=== PATIENT | female | born 1985 | race Caucasian/White ===

== ENCOUNTER 2017-08-31 08:21 | Inpatient (IN) | payer OTHER ==
[~2017-08-31] VITALS: Ht 162.6 cm; Wt 99.8 kg
[2017-08-31] VITALS (13 sets, daily range): BP systolic 108–135; BP diastolic 60–76
[~2017-08-31 08:21] MED LIST: Dexamethasone 20mg/5ml IVP ONE; NORCO 10-325 T1 EACH ORAL; SOMA350 MG PO; ceFAZolin 1gm/50ml Premix 50 ML IV ONE
[2017-08-31] MEDS ORDERED: LR 1000ml 1,000 ML IVLG SCH (09:58)
[2017-08-31] MEDS ORDERED: Ketorolac 30mg Inj IV PRN (10:00)
[2017-08-31] MEDS ORDERED: Norco 5mg/325mg tab ORAL PRN (10:00)
[2017-08-31] MEDS ORDERED: fentaNYL 100 mcg/2 mL IV PRN (10:00)
[2017-08-31] MEDS ORDERED: Metoclopramide 10mg/2ml Inj IVP PRN (10:00)
[2017-08-31] MEDS ORDERED: DiphenhydrAMINE 50mg/ml Inj IVP PRN (10:00)
[2017-08-31] MEDS ORDERED: Norco 7.5mg/325mg tab ORAL PRN (10:00)
[2017-08-31] MEDS ORDERED: Hydromorphone 0.5mg/0.5ml inj IVP PRN (10:00)
[2017-08-31] MEDS ORDERED: Atropine Inj 1mg/10ml Syr IV PRN (10:00)
[2017-08-31] MEDS ORDERED: Meperidine 25mg/0.5ml Inj (FOR RIGORS ONLY) IV PRN (10:00)
[2017-08-31] MEDS ORDERED: Midazolam 2mg/2ml Inj IVP PRN (10:00)
[2017-08-31] MEDS ORDERED: oxyCODONE HCL/Acetaminophen 5/325mg ORAL PRN (10:00)
[2017-08-31] MEDS ORDERED: LORazepam Inj 2mg/ml 1ml IV PRN (10:00)
[2017-08-31] MEDS ORDERED: Ketorolac 60mg Inj IV PRN (10:00)
--- NOTE | 2017-08-31 10:03 | Anethesia Preoperative Eval ---
Anesthesia Pre-op PMH/ROS General Date of Evaluation: Aug 31, 2017 Time of Evaluation: 12:59 Anesthesiologist: Luis ASA Score: ASA 1 Mallampati Score Class I : Soft palate, uvula, fauces, pillars visible Class II: Soft palate, uvula, fauces visible Class III: Soft palate, base of uvula visible Class IV: Only hard plate visible Mallampati Classification: Class I Surgeon: Naheed Diagnosis: Painful Hardware in Back Surgical Procedure: Remove Painful Hardware In Back Anesthesia History: none Family History: no anesthesia problems Allergies: Coded Allergies: NO KNOWN ALLERGIES (Verified Allergy, Unknown, 08/31/17) Medications: see eMAR Past Medical History Cardiovascular: Reports: HTN Musculoskeletal/Integumentary: Reports: DDD Other: obesity - BMI PSxH Narrative: BTL, L Ankle SX, Lumbar SX Anesthesia Pre-op Phys. Exam Physician Exam Last Vital Signs Date Time Temp Pulse Resp B/P (MAP) Pulse Ox O2 Delivery O2 Flow Rate FiO2 08/31/17 08:58 97.8 59 18 128/74 99 Room Air Constitutional: NAD Neurologic: CN 2-12 intact Cardiovascular: RRR Respiratory: CTA Gastrointestinal: S/NT/ND Airway Exam Mallampati Score: Class I MO: limited ROM: limited Teeth: intact Anesthesia Pre-op A/P Labs Urine Test Test 08/31/17 09:00 Urine HCG, Qualitative Negative Risk Assessment & Plan Assessment: ASA 2 Plan: GA, BIS, Glidescope Status Change Before Surgery: No Pre-Antibiotics Dru Grams Ancef IV Given Within 1 Hr of Incision: Yes Time Given: 13:16 Carlos Manuel Smith MD Aug 31, 2017 10:03
[2017-08-31] MEDS ORDERED: Acetaminophen (Non formulary) 100 ML IV ONE (11:00)
[2017-08-31] MEDS ORDERED: Thrombin 5000 units TOPIC ONE (12:12)
[2017-08-31] MEDS ORDERED: Surgicel 4in x 8in TOPIC ONE (12:12)
[2017-08-31] MEDS ORDERED: Bacitracin 50000 Units Vial ONE (12:13)
[2017-08-31] MEDS ORDERED: Lidocaine 1% Plain 30 ml INJ ONE ×2 (12:13→13:00)
[2017-08-31] MEDS ORDERED: Vancomycin 1gm inj IVPB ONE (12:13)
[2017-08-31] MEDS ORDERED: Bupivacaine w/Epi 0.5% 30ml Vial INJ ONE (12:13)
--- NOTE | 2017-08-31 12:41 | Pre-Procedure Note/Attestation ---
Pre-Procedure Note/Attestation Complete Prior to Procedure Planned Procedure: not applicable Procedure Narrative: Pedicle Screw instrumentation removal L5, S1 exploration fusion Indications for Procedure Pre-Operative Diagnosis: Pedicle Screw instrumentation paraspinal muscle irritation Attestation I attest that I discussed the nature of the procedure; its benefits; risks and complications; and alternatives (and the risks and benefits of such alternatives ), prior to the procedure, with the patient (or the patient's legal underwriting service representative). I attest that, if there was a reasonable possibility of needing a blood transfusion, the patient (or the patient's legal underwriting service representative) was given the [facility] standardized written summary, pursuant to the Lamont Hindman Blood Safety Act ([place] Health and Safety Code # 1645, as amended). I attest that I re-evaluated the patient just prior to the surgery and that there has been no change in the patient's H&P, except as documented below: CHENCHO HOOVER Aug 31, 2017 12:41
[2017-08-31] MEDS ORDERED: Sodium Chloride 10ml vial INJ ONE (13:00)
[2017-08-31] MEDS ORDERED: fentaNYL 100 mcg/2 mL IV ONE (13:00)
[2017-08-31] MEDS ORDERED: Neostigmine 1mg/ml 10ml Inj ONE (13:00)
[2017-08-31] MEDS ORDERED: Lidocaine 1% MPF 10mg/ml 5ml ONE (13:00)
[2017-08-31] MEDS ORDERED: Propofol 1,000mg/ 100ml btl IV ONE (13:00)
[2017-08-31] MEDS ORDERED: Labetalol 5mg/ml 20ml vial IV ONE (13:00)
[2017-08-31] MEDS ORDERED: NS Irrig 1000ml ONE (13:00)
[2017-08-31] MEDS ORDERED: LR 1000ml ONE (13:00)
[2017-08-31] MEDS ORDERED: Glycopyrrolate 0.2mg/ml 1ml Vial ONE (13:00)
[2017-08-31] MEDS ORDERED: Sterile Water Irrig 1000ml IRRIG ONE (13:00)
--- NOTE | 2017-08-31 13:38 | Immediate Post-Op Evaluation ---
Immediate Post-Op Evalulation Immediate Post-Op Evalulation Procedure: Remove Painful Hardware In Back Date of Evaluation: Aug 31, 2017 Time of Evaluation: 15:45 IV Fluids: 1000 LR Blood Products: 0 Estimated Blood Loss: 25 Urinary Output: 0 Blood Pressure Systolic: 121 Blood Pressure Diastolic: 75 Pulse Rate: 87 Respiratory Rate: 16 O2 Sat by Pulse Oximetry: 97 Temperature (Fahrenheit): 97.6 Pain Score (1-10): 3 Nausea: No Vomiting: No Complications 0 Patient Status: awake, reacts, patent, extubated, none Hydration Status: adequate Dru Grams Ancef IV Given Within 1 Hr of Incision: Yes Time Given: 13:16 Carlos Manuel Smith MD Aug 31, 2017 13:38
[2017-08-31] MEDS ORDERED: Norco 10mg/325mg tab ORAL PRN (14:15)
[2017-08-31] MEDS ORDERED: HYDROmorphone 1mg/ml Carpuject SUBQ PRN ×2 (14:15→15:15)
[2017-08-31] MEDS ORDERED: Lidocaine 1% 10mg/ml/Epi 0.005mg/ml 30ml vial INJ ONE (14:56)
--- NOTE | 2017-08-31 15:05 | Brief Operative Note ---
Immediate Post Operative Note Operative Note Pre-op Diagnosis: Pedicle Screw instrumentation paraspinal muscle irritation Procedure: Scar, body habitus, exploration fusion, removal pedicle screws L5, S1, Local Xray Post-op Diagnosis: same as pre-op Findings: consistent w/pre-op dx studies Surgeon: Naheed [employer] Director: Haydee ALVARADO Anesthesiologist: Luis Anesthesia: general Specimen: yes Complications: none Condition: stable Fluids: Anesthesia Estimated Blood Loss: minimal Drains: none Implant(s) used?: No CHENCHO HOOVER Aug 31, 2017 15:05
[2017-08-31] MEDS ORDERED: Naloxone 0.4mg/ml Inj IVP PRN (15:15)
--- NOTE | 2017-08-31 17:10 | Diagnostic Imaging Report ---
Indication: Back pain Comparison: None Findings: 3 views of the lumbar spine were obtained. Fluoroscopic imaging showing L5-S1 discectomy and removal of posterior fusion pedicle screws and fusion rods. Impression: Intraoperative imaging
[2017-08-31] MEDS: Albuterol ud Inhalation HHN SCH (19:00)
[2017-08-31] MEDS: D5 1/2NS 1,000 ML IV SCH (21:04)
[2017-08-31] MEDS: Docusate 100mg/10ml Liq NG SCH (21:04)
[2017-08-31] MEDS: ceFAZolin sod 1 GM in D5W 55 ML IV SCH (22:40)
[2017-09-01] VITALS: BP 124/75
[2017-09-01] MEDS: Albuterol ud Inhalation HHN SCH ×3 (01:00→12:55)
--- NOTE | 2017-09-01 01:30 | Operative Note - Dictated ---
DATE OF OPERATION: 08/31/2017 SURGEON: Enrrique Farfan, Ph.D., M.D. NAPHTHALENE OPERATOR: CHRISTIANO Murguia. ANESTHESIOLOGIST: Carlos Manuel Smith M.D. ANESTHESIA: General with intubation. Admitting/Preoperative Diagnoses: Back pain, pedicle screw rotation paraspinal muscles. Postoperative Diagnoses: Back pain, pedicle screw rotation paraspinal muscles, seroma, and lumbodorsal fascia tear. Operative Procedure: The patient's body habitus greater than 95th percentile for height (subcutaneous tissue greater than 8 inches in depth). Operation of the scar tissue, exploration fusion mass L5-S1, pedicle screw instrumentation removal L5, S1, intraoperative fluoroscopy interpreted by surgeon. Local anesthetic applied by surgeon 1% lidocaine with epinephrine. ESTIMATED BLOOD LOSS: Minimal. COMPLICATIONS: None. POSTOPERATIVE CONDITION: Good/stable. Specimen: Pedicle screw instrumentation removed, sent to pathology, gross only per documentation. Description of Procedure: The patient was brought to the operating room and in the supine position general anesthesia with intubation was induced. Intravenous antibiotics and intravenous Decadron were administered 30 minutes prior to incision time. The patient was carefully turned and positioned in the prone position. Lumbodorsal spine was sterilely prepped. Under sterile conditions, a spinal needle was placed in the subcutaneous tissue only. A cross-table fluoroscopic image was obtained demonstrating the correct level for incision placement. Needle was removed. Lumbodorsal spine was re-sterilely prepped and draped free in usual sterile fashion. Utilizing a subset of the prior lumbar incision, sharp dissection was carried through scar tissue, dermis, and epidermis. Electrocautery dissection was carried through scar tissue to the level of the lumbodorsal fascia. Lumbodorsal fascia noted to have been torn asymmetric left of the midline. Dissection was carried further through the lumbodorsal fascia bilaterally to the level of pedicle screw instrumentation. The seroma encountered bilaterally, left greater than right. Pedicle screw instrumentation identified. Interconnecting olimpia removed under high-power magnification. Effusion noted to be intact. Pedicle screw instrumentation removed L5, S1 bilaterally. Irrigated with antibiotic-containing saline. FloSeal applied into the pedicle screw holes. The patient was stable. Sequential reapproximation of the lumbodorsal fascia was repaired. Subcutaneous tissue in multiple layers. Before reapproximation of the paraspinal subcutaneous tissue 1 g vancomycin powder applied. Further reapproximation of dermis and epidermis with a running subcuticular suture. Local anesthetic applied to bilateral lateral aspects of the incision 1% lidocaine with epinephrine. Surgical strips applied transverse to the incision. Sterile bandage applied and maintained in place with tape. The patient was carefully turned from the prone to supine position on the transport bed where she was awakened and extubated in the operating room and transported to postop recovery in good stable condition. Enrrique Farfan M.D. DR: THImmanuel JOB#: [id number] CC:
[2017-09-01 04:00] VITALS: BP 138/86
[2017-09-01] MEDS: ceFAZolin sod 1 GM in D5W 55 ML IV SCH (05:19)
[2017-09-01] MEDS: D5 1/2NS 1,000 ML IV SCH (05:19)
[2017-09-01] MEDS ORDERED: Norco 10mg/325mg tab ORAL ONE (06:15)
[2017-09-01] MEDS ORDERED: Norco 10mg/325mg tab ORAL PRN (06:15)
--- NOTE | 2017-09-01 07:45 | 48 Hour Post Anesthesia Eval ---
Post Anesthesia Evaluation Procedure: Remove Painful Hardware In Back Date of Evaluation: Sep 01, 2017 Airway: patent Nausea: No Vomiting: No Pain Intensity: 2 Hydration Status: adequate Cardiopulmonary Status: at baseline Mental Status/LOC: patient returned to baseline Post-Anesthesia Complications: 0 Follow-up care needed: N/A - further care as per primary team MIKE ZENG M.D. Sep 01, 2017 07:45
[2017-09-01 08:00] VITALS: BP 121/54
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
[2017-09-01] MEDS: Docusate 100mg/10ml Liq NG SCH (09:01)
[2017-09-01 12:00] VITALS: BP 109/58
[2017-09-01] MEDS ORDERED: D5 1/2NS 1000ml IV ONE (13:39)
[2017-09-01] MEDS ORDERED: Tubing IV Secondary IV ONE (13:39)
--- NOTE | 2017-09-01 17:15 | Progress Note ---
DATE: 09/01/2017 ACUTE PAIN MANAGEMENT PHYSICIAN PROGRESS NOTE Medications: Medication administration record reviewed. Medications include Ancef, Colace, Protonix, albuterol, p.r.n. medications include Zofran, Soma, Benadryl, Fioricet, Cepacol, Catapres, Dilaudid, Mylanta, Phenergan, Tylenol and Pisek. LABORATORY STUDIES: No interval laboratory studies. OBJECTIVE: Vital Signs: Within normal limits, afebrile, pulse 92, respirations 16, blood pressure 138/86, and oxygen saturation 98% on room air. I spent over 60 minutes in consultation today. I saw the patient at the bedside. After discussion with the nurse RN, Savannah, I discussed with the surgeon, Dr. Farfan. I spent over 60 minutes in consultation today. Dr. Farfan stated that the surgery went straight forward with the removal of hardware and reexploration of her lumbar spine yesterday. The patient has been able to ambulate in and out of bed. She did require multiple bolus doses of Dilaudid overnight. I spoke with the substance abuse nurse nurse to dose her with Pisek to help transition to oral pain medications so that she can be discharged to home later today. The patient does use Pisek and Soma at home and I will be certain that she has had ample supply for home usage. The patient denies any shortness of breath or chest pain. Her vital signs are within normal limits and she is tolerating advancing diet without any nausea symptoms. The patient is alert and ordered x3. She is breathing comfortably. I ordered a albuterol nebulizer treatment for breathing problems and she states that she is breathing comfortably. With her improved ambulation, tolerability of oral intake, and adequate pain control, I see no contraindication for discharge trial to home today. The patient will follow up with Dr. Enrrique Farfan in outpatient surgical clinic for surgical followup. The lumbar spine wound appears clean and dry and the patient is voiding urine without any difficulty. Continue to encourage incentive spirometer usage for good pulmonary toilet in this obese woman who is at risk for postoperative pneumonia and atelectasis after anesthesia yesterday. Derrek Calvo M.D. DR: GARFIELD JOB#: [id number] CC:
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
== END 2017-09-01 13:40 | disposition home or self-care (01) | DRG 496 ==
LOC: SUR 08:21 → 3E 15:05
PROC: 0JQ70ZZ Repair Back Subcutaneous Tissue and Fascia, Open Approach (ICD-10-PCS; principal; 2017-08-31 12:00)
PROC: 0QP004Z Removal of Internal Fixation Device from Lumbar Vertebra, Open Approach (ICD-10-PCS; principal; 2017-08-31 12:00)
DX: T84.84XA Pain due to internal orthopedic prosthetic devices, implants and grafts, initial encounter (principal); M96.842 Postprocedural seroma of a musculoskeletal structure following a musculoskeletal system procedure; E66.01 Morbid (severe) obesity due to excess calories; I10 Essential (primary) hypertension; M54.5 Low back pain; Z98.1 Arthrodesis status; Y83.8 Other surgical procedures as the cause of abnormal reaction of the patient, or of later complication, without mention of misadventure at the time of the procedure; S39.022A Laceration of muscle, fascia and tendon of lower back, initial encounter; V89.2XXS Person injured in unspecified motor-vehicle accident, traffic, sequela
CPT/HCPCS: 36415; 72020; 76001; 81025; 86850; 86900; 86901; 87081; 94003; 94150; 94640; 94664; J2710